=== PATIENT | female | born 1980 | race Two or more races ===

== ENCOUNTER 2024-07-06 05:30 | Day surgery (SDC) | payer OTHER ==
[2024-07-05 15:37] VITALS: BP 118/80
[~2024-07-06] VITALS: Ht 157.5 cm; Wt 81.2 kg
[2024-07-06] MEDS ORDERED: CLINDAMYCIN PHOSPHATE 150 MG/ML (900mg) ONE (07:41)
[2024-07-06] MEDS ORDERED: ENOXAPARIN SODIUM 40 MG/0.4 ML SYRINGE SUBCUTANEO ONE (07:47)
[2024-07-06] MEDS ORDERED: EPINEPHRINE HCL/PF 1 MG/ML AMPUL ONE (08:17)
[2024-07-06] MEDS ORDERED: TRANEXAMIC ACID 100MG/1ML (1000MG) AMPUL IV ONE (08:18)
[2024-07-06] MEDS ORDERED: LIDOCAINE HCL 1%/EPINEPHRINE 20ML VIAL IJ ONE (08:36)
[2024-07-06] MEDS ORDERED: MORPHINE SULFATE 2 MG/ML CARTRIDGE IV ONE (16:45)
[2024-07-06] MEDS ORDERED: ONDANSETRON HCL 2 MG/ML VIAL ONE (16:53)
== END 2024-07-06 17:40 | disposition home or self-care (01) ==
LOC: CIR.AMB 05:30
PROVIDERS: ATTEND Specialist
DX: M79.3 Panniculitis, unspecified (principal); N64.89 Other specified disorders of breast; E66.8 Other obesity; E65 Localized adiposity; R63.4 Abnormal weight loss; E66.01 Morbid (severe) obesity due to excess calories

== ENCOUNTER 2024-07-21 17:41 | Inpatient (IN) | payer OTHER ==
[~2024-07-21] VITALS: Ht 157.5 cm; Wt 74.4 kg
[2024-07-21] MEDS ORDERED: SYNTHROID125 MCG PO (17:54)
[2024-07-21] MEDS ORDERED: ZESTRIL5 MG PO (17:54)
[2024-07-21] MEDS ORDERED: KETOROLAC TROMETHAMINE 10 MG TABLET PO PRN (19:00)
[2024-07-21] MEDS ORDERED: RINGERS SOLUTION,LACTATED 1,000 ML IV SCH (19:00)
[2024-07-21] MEDS ORDERED: OxyCODONE HCL/APAP UD (PERCOCET) PO PRN (19:00)
[2024-07-21] MEDS ORDERED: VANCOMYCIN HCL 1,000 MG VIAL IV SCH (19:04)
[2024-07-21] MEDS ORDERED: ONDANSETRON HCL 4 MG in 0.9 % SODIUM CHLORIDE 50 ML IV PRN (19:15)
[2024-07-21] MEDS ORDERED: ACETAMINOPHEN 500 MG GEL..CAP PO PRN (19:15)
[2024-07-21 20:35] LABS: HEMATOCRIT 36.2 % (36.0-45.00); HEMOGLOBIN 11.9 g/dL (12.0-15.00); MEAN CELL VOLUME 92.1 fL (80.00-100.00); MEAN CORPUSCULAR HEMOGLOBIN 30.2 pg (27.00-32.0); MEAN CORPUSCULAR HGB CONC 32.8 g/dl (32.0-36.0); PLATELET COUNT 624 K/uL (150-450); RED BLOOD COUNT 3.93 M/uL (4.00-6.00); RED CELL DISTRIBUTION WIDTH 13.9 % (11.5-14.5)
[2024-07-21 21:23] LABS: ALBUMIN 2.9 gm/dL (3.4-5.0); BILIRUBIN TOTAL 0.44 mg/dL (0.3-1.2); CREATININE SERUM 0.64 mg/dL (0.55-1.02); GFR 101.28; GLOBULINA 4.5 G/DL (2.4-3.5); POTASSIUM 3.97 mEq/L (3.5-5.1); TOTAL PROTEIN 7.4 gm/dL (6.4-8.2)
[2024-07-21 22:13] VITALS: BP 105/63; O2SAT 100
[2024-07-22 01:00] VITALS: BP 103/54; O2SAT 98
[2024-07-22] MEDS ORDERED: METRONIDAZOLE/SODIUM CHLORIDE 100 ML IV SCH (01:00)
[2024-07-22] MEDS ORDERED: LEVOTHYROXINE SODIUM 125 MCG TABLET PO SCH (06:00)
[2024-07-22 08:00] VITALS: BP 92/67; O2SAT 100
[2024-07-22] MEDS ORDERED: LISINOPRIL 5 MG TABLET PO SCH (09:00)
[2024-07-22] MEDS ORDERED: LORATADINE 10 MG TABLET PO SCH (09:00)
[2024-07-22 15:42] VITALS: BP 100/58; O2SAT 98
[2024-07-23] VITALS: BP 88/55; O2SAT 99
[2024-07-23 08:00] VITALS: BP 93/55; O2SAT 100
[2024-07-23 11:41] LABS: PH,URINE 5.5 (5.0-8.0); URINE APPEARANCE Clear; URINE BILIRRUBIN Negative (NEGATIVE); URINE BLOOD Negative; URINE COLOR Yellow; URINE GLUCOSE Negative (NEGATIVE); URINE KETONE Trace (NEGATIVE); URINE LEUKOCYTE Small; URINE NITRATE Negative; URINE PROTEIN Negative (NEGATIVE); URINE UROBILINOGEN 0.2 E.U./dl
[2024-07-23 11:45] LABS: URINE BACTERIA 309.9 uL (0.0-1933); URINE EPITHELIAL CELLS 11.8 uL (0.0-38.8); URINE RBC 3.3 uL (0.0-20.8); URINE WBC 10.6 uL (0.0-23.2)
[2024-07-23 12:21] LABS: URINE CAST 0.45 uL (0.0-1.40)
[2024-07-23 15:48] VITALS: BP 100/50; O2SAT 98
[2024-07-23] MEDS ORDERED: VANCOMYCIN HCL 1,000 MG VIAL IV SCH (21:00)
[2024-07-24] VITALS: BP 85/50; O2SAT 100
[2024-07-24 06:52] LABS: HEMATOCRIT 24.7 % (36.0-45.00); MEAN CELL VOLUME 89.6 fL (80.00-100.00); MEAN CORPUSCULAR HEMOGLOBIN 31.1 pg (27.00-32.0); MEAN CORPUSCULAR HGB CONC 34.7 g/dl (32.0-36.0); PLATELET COUNT 441 K/uL (150-450); RED BLOOD COUNT 2.76 M/uL (4.00-6.00); RED CELL DISTRIBUTION WIDTH 14.2 % (11.5-14.5)
[2024-07-24 07:03] LABS: HEMOGLOBIN 8.6 g/dL (12.0-15.00)
[2024-07-24 08:00] VITALS: BP 100/53; O2SAT 100
[2024-07-24] MEDS ORDERED: SOD FERRIC GLUC COMPLX/SUCROSE 62.5 MG in 0.9 % SODIUM CHLORIDE 50 ML IV SCH (17:00)
[2024-07-24 18:23] VITALS: BP 106/65; O2SAT 100
[2024-07-25 00:54] VITALS: BP 100/50; O2SAT 99
[2024-07-25 08:00] VITALS: BP 103/58; O2SAT 100
[2024-07-25 16:40] VITALS: BP 92/62; O2SAT 99
[2024-07-26 01:06] VITALS: BP 108/67; O2SAT 100
[2024-07-26 07:43] LABS: HEMATOCRIT 28.1 % (36.0-45.00); MEAN CELL VOLUME 90.6 fL (80.00-100.00); MEAN CORPUSCULAR HGB CONC 33.7 g/dl (32.0-36.0); PLATELET COUNT 475 K/uL (150-450); RED CELL DISTRIBUTION WIDTH 14.6 % (11.5-14.5)
[2024-07-26 07:44] LABS: HEMOGLOBIN 9.5 g/dL (12.0-15.00); MEAN CORPUSCULAR HEMOGLOBIN 30.6 pg (27.00-32.0)
[2024-07-26 08:00] VITALS: BP 95/55; O2SAT 96
[2024-07-26 08:54] LABS: ALBUMIN 2.4 gm/dL (3.4-5.0); BILIRUBIN TOTAL 0.49 mg/dL (0.3-1.2); CALCIUM 8.4 mg/dL (8.5-10.1); CREATININE SERUM 0.45 mg/dL (0.55-1.02); GFR 152.07; GLOBULINA 2.7 G/DL (2.4-3.5); POTASSIUM 4.61 mEq/L (3.5-5.1); TOTAL PROTEIN 5.1 gm/dL (6.4-8.2)
[2024-07-26 18:00] VITALS: BP 103/58; O2SAT 98
[2024-07-26 23:57] VITALS: BP 100/65; O2SAT 100
[2024-07-27 08:18] VITALS: BP 100/55; O2SAT 100
[2024-07-27 16:00] VITALS: BP 107/56; O2SAT 100
[2024-07-28 01:38] VITALS: BP 98/55; O2SAT 99
[2024-07-28 08:00] VITALS: BP 107/64; O2SAT 20
[2024-07-28] MEDS ORDERED: SILVER SULFADIAZINE 50 GM JAR TOP ONE (14:15)
[2024-07-28] MEDS ORDERED: MORPHINE SULFATE 4 MG/ML VIAL IV ONE ×2 (15:10→16:10)
[2024-07-28] MEDS ORDERED: POVIDONE-IODINE 118 ML BOTT TOP ONE (19:00)
[2024-07-28] MEDS ORDERED: LIDOCAINE HCL 1%/EPINEPHRINE 20ML VIAL IJ ONE (19:00)
[2024-07-29] VITALS: BP 101/55; O2SAT 99
[2024-07-29 08:20] VITALS: BP 108/73; O2SAT 97
[2024-07-29] MEDS ORDERED: METRONIDAZOLE/SODIUM CHLORIDE 500 MG/100 ML PIGGYBACK IV SCH (17:00)
[2024-07-29 17:02] VITALS: BP 87/58; O2SAT 99
[2024-07-30 01:04] VITALS: BP 85/50; O2SAT 95
[2024-07-30 02:23] VITALS: BP 96/54; O2SAT 98
[2024-07-30 09:36] VITALS: BP 91/68; O2SAT 93
== END 2024-07-30 16:59 | disposition home or self-care (01) | DRG 585 ==
LOC: ER 17:43 → SURH 20:39 → SURG 20:39 → SURH 20:39 → EDBD 20:39 → SURH 20:58
PROVIDERS: ADMIT Specialist; ATTEND Specialist
PROC: 0HBU0ZZ Excision of Left Breast, Open Approach (ICD-10-PCS; principal; 2024-07-29)
PROC: 0H9U00Z Drainage of Left Breast with Drainage Device, Open Approach (ICD-10-PCS; 2024-07-29)
PROC: 3E1038Z Irrigation of Skin and Mucous Membranes using Irrigating Substance, Percutaneous Approach (ICD-10-PCS; 2024-07-29)
DX: N61.1 Abscess of the breast and nipple (principal)